=== PATIENT | female | born 1980 | race Two or more races ===

== ENCOUNTER → 2019-05-28 | Outpatient (CLI) | payer OTHER | END | disposition home or self-care (01) | LOC: ECT 09:17 | DX: F31.9 Bipolar disorder, unspecified (principal); Z87.442 Personal history of urinary calculi; M79.7 Fibromyalgia; L65.9 Nonscarring hair loss, unspecified; F41.9 Anxiety disorder, unspecified ==

== ENCOUNTER 2019-06-24 05:48 | Outpatient (RCR) | payer OTHER ==
[~2019-06-24] VITALS: Ht 165.1 cm; Wt 67.1 kg
[2019-06-24] MEDS ORDERED: Excedrin Migraine tab ONE ×3 (05:49)
[2019-06-24] MEDS ORDERED: Methohexital Sodium Syr 100mg/10ml IVP ONE ×2 (05:49)
[2019-06-24] MEDS ORDERED: Succinylcholine 20mg/ml 10ml vial ONE ×3 (05:49)
[2019-06-24] MEDS ORDERED: Esmolol 100mg/10ml Inj ONE (05:49)
[2019-06-24] MEDS ORDERED: Midazolam 2mg/2ml Inj ONE ×3 (05:49)
[2019-06-24] MEDS ORDERED: Ketorolac 60mg Inj IM ONE ×3 (05:49)
[2019-06-24] MEDS ORDERED: NS 500ML ONE ×3 (05:49)
[2019-06-24 07:51] VITALS: BP 138/96
[2019-06-24] MEDS ORDERED: Excedrin Migraine tab ORAL PRN (08:03)
[2019-06-24 08:04] VITALS: BP 117/67
[2019-06-24 08:09] VITALS: BP 121/79
[2019-06-24 08:14] VITALS: BP 122/66
[2019-06-24 08:19] VITALS: BP 138/83
[2019-06-24 10:45] VITALS: BP 125/88
[2019-06-26] MEDS ORDERED: Midazolam 2mg/2ml Inj ONE (06:00)
[2019-06-26] MEDS ORDERED: Excedrin Migraine tab ONE (06:00)
[2019-06-26] MEDS ORDERED: NS 500ML ONE (06:00)
[2019-06-26] MEDS ORDERED: Ketorolac 30mg Inj ONE (06:00)
[2019-06-26] MEDS ORDERED: Succinylcholine 20mg/ml 10ml vial ONE (06:00)
[2019-06-26] MEDS ORDERED: Methohexital Sodium Syr 100mg/10ml IVP ONE (06:00)
[2019-06-26 07:58] VITALS: BP 123/87
[2019-06-26 08:09] VITALS: BP 128/82
[2019-06-26] MEDS ORDERED: HYDROcodone/Acetamin 5/325 tab ORAL PRN (08:09)
[2019-06-26 08:14] VITALS: BP 121/69
[2019-06-26 08:19] VITALS: BP 130/67
[2019-06-26 08:24] VITALS: BP 122/78
[2019-06-28 08:08] VITALS: BP 139/96
[2019-06-28 08:20] VITALS: BP 140/84
[2019-06-28] MEDS ORDERED: Excedrin Migraine tab ORAL PRN (08:20)
[2019-06-28 08:25] VITALS: BP 130/84
[2019-06-28 08:30] VITALS: BP 134/87
[2019-06-28 08:35] VITALS: BP 138/81
[2019-07-01] MEDS ORDERED: Excedrin Migraine tab ONE (07:00)
[2019-07-01] MEDS ORDERED: Succinylcholine 20mg/ml 10ml vial ONE (07:00)
[2019-07-01] MEDS ORDERED: Midazolam 2mg/2ml Inj ONE (07:00)
[2019-07-01] MEDS ORDERED: Ketorolac 60mg Inj IM ONE (07:00)
[2019-07-01] MEDS ORDERED: NS 500ML ONE (07:00)
[2019-07-01] MEDS ORDERED: Methohexital Sodium Syr 100mg/10ml IVP ONE (07:00)
[2019-07-01 08:19] VITALS: BP 127/77
[2019-07-01 08:31] VITALS: BP 127/77
[2019-07-01] MEDS ORDERED: Excedrin Migraine tab ORAL PRN (08:31)
[2019-07-01 08:36] VITALS: BP 133/82
[2019-07-01 08:41] VITALS: BP 142/74
[2019-07-01 08:45] VITALS: BP 139/80
[2019-07-03] MEDS ORDERED: Methohexital Sodium Syr 100mg/10ml IVP ONE (07:00)
[2019-07-03] MEDS ORDERED: NS 500ML ONE (07:00)
[2019-07-03] MEDS ORDERED: Midazolam 2mg/2ml Inj ONE (07:00)
[2019-07-03] MEDS ORDERED: Excedrin Migraine tab ONE (07:00)
[2019-07-03] MEDS ORDERED: Succinylcholine 20mg/ml 10ml vial ONE (07:00)
[2019-07-03] MEDS ORDERED: Ketorolac 60mg Inj IM ONE (07:00)
[2019-07-03 08:18] VITALS: BP 133/93
[2019-07-03] MEDS ORDERED: Excedrin Migraine tab ORAL PRN (08:29)
[2019-07-03 08:30] VITALS: BP 135/87
[2019-07-03 08:35] VITALS: BP 129/73
[2019-07-03 08:40] VITALS: BP 137/78
[2019-07-03 08:45] VITALS: BP 131/82
[2019-07-10] MEDS ORDERED: Midazolam 2mg/2ml Inj ONE (06:00)
[2019-07-10] MEDS ORDERED: NS 500ML ONE (06:00)
[2019-07-10] MEDS ORDERED: Ketorolac 30mg Inj ONE (06:00)
[2019-07-10] MEDS ORDERED: Methohexital Sodium Syr 100mg/10ml IVP ONE (06:00)
[2019-07-10] MEDS ORDERED: Excedrin Migraine tab ONE (06:00)
[2019-07-10] MEDS ORDERED: Succinylcholine 20mg/ml 10ml vial ONE (06:00)
[2019-07-10 07:44] VITALS: BP 125/94
[2019-07-10] MEDS ORDERED: Excedrin Migraine tab ORAL PRN (07:56)
[2019-07-10 08:00] VITALS: BP 130/89
[2019-07-10 08:05] VITALS: BP 132/78
[2019-07-10 08:10] VITALS: BP 129/70
[2019-07-10 08:15] VITALS: BP 137/81
[2019-07-17] MEDS ORDERED: Succinylcholine 20mg/ml 10ml vial ONE (09:00)
[2019-07-17] MEDS ORDERED: Midazolam 2mg/2ml Inj ONE (09:00)
[2019-07-17] MEDS ORDERED: NS 500ML ONE (09:00)
[2019-07-17] MEDS ORDERED: Ketorolac 60mg Inj IM ONE (09:00)
[2019-07-17] MEDS ORDERED: Excedrin Migraine tab ONE (09:00)
[2019-07-17 09:45] VITALS: BP 140/100
[2019-07-17] MEDS ORDERED: Excedrin Migraine tab ORAL PRN (10:06)
[2019-07-17 10:10] VITALS: BP 131/81
[2019-07-17 10:15] VITALS: BP 127/77
[2019-07-17 10:20] VITALS: BP 137/87
[2019-07-17 10:25] VITALS: BP 139/89
== END 2019-07-23 | disposition home or self-care (01) ==
LOC: ECT 05:48
DX: F31.9 Bipolar disorder, unspecified (principal); M79.7 Fibromyalgia; G43.909 Migraine, unspecified, not intractable, without status migrainosus; D68.2 Hereditary deficiency of other clotting factors; L65.9 Nonscarring hair loss, unspecified; Z87.442 Personal history of urinary calculi
CPT/HCPCS: 90870; J0330; J1885; J2250; J7040

== ENCOUNTER 2019-07-24 06:25 | Outpatient (RCR) | payer OTHER ==
[~2019-07-24] VITALS: Ht 165.1 cm; Wt 67.1 kg
[2019-07-24] MEDS ORDERED: Excedrin Migraine tab ONE (06:26)
[2019-07-24] MEDS ORDERED: NS 500ML ONE (06:26)
[2019-07-24] MEDS ORDERED: Metoclopramide 10mg/2ml Inj ONE (06:26)
[2019-07-24] MEDS ORDERED: Ketorolac 60mg Inj IM ONE (06:26)
[2019-07-24] MEDS ORDERED: Succinylcholine 20mg/ml 10ml vial ONE (06:26)
[2019-07-24] MEDS ORDERED: Midazolam 2mg/2ml Inj ONE (06:26)
[2019-07-24 08:45] VITALS: BP 142/97
[2019-07-24] MEDS ORDERED: Excedrin Migraine tab ORAL PRN (08:54)
[2019-07-24 09:00] VITALS: BP 119/72
[2019-07-24 09:05] VITALS: BP 124/69
[2019-07-24 09:10] VITALS: BP 126/80
[2019-07-24 09:15] VITALS: BP 127/75
[2019-07-26] MEDS ORDERED: Midazolam 2mg/2ml Inj ONE (06:00)
[2019-07-26] MEDS ORDERED: Excedrin Migraine tab ONE (06:00)
[2019-07-26] MEDS ORDERED: Succinylcholine 20mg/ml 10ml vial ONE (06:00)
[2019-07-26] MEDS ORDERED: NS 500ML ONE (06:00)
[2019-07-26] MEDS ORDERED: Methohexital Sodium Syr 100mg/10ml IVP ONE (06:00)
[2019-07-26] MEDS ORDERED: Ketorolac 30mg Inj ONE (06:00)
[2019-07-26 10:37] VITALS: BP 138/95
[2019-07-26] MEDS ORDERED: Excedrin Migraine tab ORAL PRN (10:49)
[2019-07-26 10:50] VITALS: BP 129/77
[2019-07-26 10:55] VITALS: BP 121/72
[2019-07-26 11:00] VITALS: BP 125/63
[2019-07-26 11:05] VITALS: BP 125/68
[2019-07-31] MEDS ORDERED: Ketorolac 60mg Inj IM ONE (06:00)
[2019-07-31] MEDS ORDERED: Methohexital Sodium Syr 100mg/10ml IVP ONE (06:00)
[2019-07-31] MEDS ORDERED: Succinylcholine 20mg/ml 10ml vial ONE (06:00)
[2019-07-31] MEDS ORDERED: NS 500ML ONE (06:00)
[2019-07-31] MEDS ORDERED: Excedrin Migraine tab ONE (06:00)
[2019-07-31 08:58] VITALS: BP 142/93
[2019-07-31] MEDS ORDERED: Excedrin Migraine tab ORAL PRN (09:12)
[2019-07-31 09:15] VITALS: BP 125/75
[2019-07-31 09:20] VITALS: BP 122/70
[2019-07-31 09:25] VITALS: BP 125/78
[2019-07-31 09:30] VITALS: BP 134/78
[2019-08-07] MEDS ORDERED: Midazolam 2mg/2ml Inj ONE (08:00)
[2019-08-07] MEDS ORDERED: Excedrin Migraine tab ONE (08:00)
[2019-08-07] MEDS ORDERED: Ketorolac 60mg Inj IM ONE (08:00)
[2019-08-07] MEDS ORDERED: Methohexital Sodium Syr 100mg/10ml IVP ONE (08:00)
[2019-08-07] MEDS ORDERED: NS 500ML ONE (08:00)
[2019-08-07] MEDS ORDERED: Succinylcholine 20mg/ml 10ml vial ONE (08:00)
[2019-08-07 09:33] VITALS: BP 160/101
[2019-08-07] MEDS ORDERED: Excedrin Migraine tab ORAL PRN (09:45)
[2019-08-07 09:46] VITALS: BP 129/77
[2019-08-07 09:51] VITALS: BP 128/78
[2019-08-07 09:56] VITALS: BP 130/85
[2019-08-07 10:01] VITALS: BP 134/86
[2019-08-14] MEDS ORDERED: Succinylcholine 20mg/ml 10ml vial ONE (06:00)
[2019-08-14] MEDS ORDERED: Excedrin Migraine tab ONE (06:00)
[2019-08-14] MEDS ORDERED: Methohexital Sodium Syr 100mg/10ml IVP ONE (06:00)
[2019-08-14] MEDS ORDERED: Midazolam 2mg/2ml Inj ONE (06:00)
[2019-08-14] MEDS ORDERED: Ketorolac 60mg Inj IM ONE (06:00)
[2019-08-14] MEDS ORDERED: NS 500ML ONE (06:00)
[2019-08-14 09:27] VITALS: BP 136/97
[2019-08-14] MEDS ORDERED: Excedrin Migraine tab ORAL PRN (09:42)
[2019-08-14 09:43] VITALS: BP 123/70
[2019-08-14 09:48] VITALS: BP 129/69
[2019-08-14 09:53] VITALS: BP 128/67
[2019-08-14 09:58] VITALS: BP 135/80
== END 2019-08-22 | disposition home or self-care (01) ==
LOC: ECT 06:25
DX: F31.9 Bipolar disorder, unspecified (principal)
CPT/HCPCS: 90870; J0330; J1885; J2250; J2765; J7040

== ENCOUNTER 2019-08-23 08:12 | Outpatient (RCR) | payer OTHER ==
[~2019-08-23] VITALS: Ht 165.1 cm; Wt 67.1 kg
[2019-08-23] MEDS ORDERED: Ketorolac 30mg Inj ONE (08:13)
[2019-08-23] MEDS ORDERED: Midazolam 2mg/2ml Inj ONE (08:13)
[2019-08-23] MEDS ORDERED: Methohexital Sodium Syr 100mg/10ml IVP ONE (08:13)
[2019-08-23] MEDS ORDERED: NS 500ML ONE (08:13)
[2019-08-23] MEDS ORDERED: SUMAtriptan 6mg/0.5ml Inj SUBQ ONE (08:13)
[2019-08-23] MEDS ORDERED: Excedrin Migraine tab ONE (08:13)
[2019-08-23 08:34] VITALS: BP 149/97
[2019-08-23] MEDS ORDERED: Excedrin Migraine tab ORAL PRN (08:53)
[2019-08-23 08:55] VITALS: BP 118/67
[2019-08-23 09:00] VITALS: BP 122/67
[2019-08-23 09:05] VITALS: BP 120/78
[2019-08-23 09:10] VITALS: BP 124/72
[2019-09-04] MEDS ORDERED: Succinylcholine 20mg/ml 10ml vial ONE (09:00)
[2019-09-04] MEDS ORDERED: Midazolam 2mg/2ml Inj ONE (09:00)
[2019-09-04] MEDS ORDERED: Excedrin Migraine tab ONE (09:00)
[2019-09-04] MEDS ORDERED: NS 500ML ONE (09:00)
[2019-09-04] MEDS ORDERED: Ketorolac 60mg Inj IM ONE (09:00)
[2019-09-04] MEDS ORDERED: Methohexital Sodium Syr 100mg/10ml IVP ONE (09:00)
[2019-09-04 10:06] VITALS: BP 152/106
[2019-09-04 10:24] VITALS: BP 123/84
[2019-09-04] MEDS ORDERED: Excedrin Migraine tab ORAL PRN (10:24)
[2019-09-04] MEDS ORDERED: Atropine Sulfate 0.4mg/ml inj IVP PRN (10:24)
[2019-09-04 10:29] VITALS: BP 119/71
[2019-09-04 10:34] VITALS: BP 114/64
[2019-09-04 10:39] VITALS: BP 111/62
== END 2019-09-22 | disposition home or self-care (01) ==
LOC: ECT 08:12
DX: F31.9 Bipolar disorder, unspecified (principal)
CPT/HCPCS: 90870; J0330; J1885; J2250; J3030; J7040